=== PATIENT | female | born 1970 | race Caucasian/White ===

== ENCOUNTER 2016-06-18 09:29 | Emergency (ER) | payer OTHER ==
[2016-06-18 09:34] VITALS: BP 124/73
[2016-06-18] MEDS ORDERED: oxyCODONE/Acetamin 5/325 MG* TAB PO ONE (11:48)
[2016-06-18] MEDS ORDERED: Cyclobenzaprine TAB* 10 MG PO ONE (11:48)
--- NOTE | 2016-06-18 11:54 | ED ---
Back Pain - HPI Summary HPI Summary: 46 F presents with left sided lower back pain for 3 days. She says the pain radiates down her left leg to the knee. She denies any numbness or tingling. She denies any fever, saddle anesthesia, or loss of bowel or bladder. She denies any weakness. She has taken icy hot, tens unit, and tyenlol for her pain without relief. Her states that he believes it is the bed she recently switched beds and it is much firmer than her other bed. She denies any trauma to the area or previous injury. She already takes gabapentin for her legs. - History of Current Complaint Chief Complaint: EDBackInjuryPain Stated Complaint: LOWER LEFT BACK PAIN Time Seen by Provider: 06/18/16 11:37 Pain Intensity: 7 - Allergies/Home Medications Allergies/Adverse Reactions: Allergies Allergy/AdvReac Type Severity Reaction Status Date / Time Penicillins [PCN] Allergy Severe Rash And Verified 06/18/16 09:35 Itching PMH/Surg Hx/FS Hx/Imm Hx Endocrine/Hematology History: Denies: Hx Anticoagulant Therapy Cardiovascular History: Denies: Hx Hypertension Infectious Disease History: No Infectious Disease History: Denies: Traveled Outside the [place] in Last 30 Days - Family History Known Family History: Positive: Hypertension - Social History Alcohol Use: None Substance Use Type: Reports: None Smoking Status (MU): Never Smoked Tobacco Review of Systems Negative: Fever Negative: Chest Pain Negative: Shortness Of Breath Positive: Myalgia - back pain All Other Systems Reviewed And Are Negative: Yes Physical Exam Triage Information Reviewed: Yes Vital Signs On Initial Exam: Initial Vitals Temp Pulse Resp BP Pulse Ox 98.0 F 84 15 124/73 100 06/18/16 09:30 06/18/16 09:30 06/18/16 09:30 06/18/16 09:30 06/18/16 09:30 Vital Signs Reviewed: Yes Appearance: Positive: Well-Appearing Skin: Positive: Warm, Dry Head/Face: Positive: Normal Head/Face Inspection Eyes: Positive: Normal, Conjunctiva Clear ENT: Positive: Normal ENT inspection, Pharynx normal, TMs normal Respiratory/Lung Sounds: Positive: Clear to Auscultation, Breath Sounds Present Cardiovascular: Positive: Normal, RRR Musculoskeletal: Positive: Limited @ - back due to pain, Other - neg SLR, no midline tenderness, tenderness across left side of lower back, good pulses Neurological: Positive: Reflexes Intact Diagnostics - Vital Signs Vital Signs Temp Pulse Resp BP Pulse Ox 06/18/16 09:30 98.0 F 84 15 124/73 100 - Laboratory Lab Statement: Any lab studies that have been ordered have been reviewed, and results considered in the medical decision making process. Re-Evaluation - Re-Evaluation First Eval Re-Evaluation Time: 12:15 Comment: feeling better with pain medication and would like to go home Back Pain Course/Dx - Course Course Of Treatment: 46 F w/ left sided lower back pain for 3 days. Took tyenlol yesterday, no trauma, no warning symptoms, neg SLR, no midline tenderness, tenderness on left sideback, discussed xray but patient refused as no trauma, pain likely musculoskeletal with potentially sciatica pain, will treat conserviately, patient agrees with plan - Diagnoses Differential Diagnosis/HQI/PQRI: Positive: Strain, Sprain, Other - sciatica Provider Diagnoses: Back pain Discharge - Discharge Plan Condition: Good Disposition: HOME Prescriptions: Cyclobenzaprine TAB* [Flexeril TAB*] 10 mg PO TID PRN #8 tab PRN Reason: Pain Lidocaine PATCH 5%* [Lidoderm 5% Patch*] 1 patch TRANSDERM DAILY #5 patch Methylprednisolone [Medrol Dosepak 4 MG*] 4 mg PO .SEE CRISTAL INSTRUCTION #1 packet Patient Education Materials: Back Pain (ED) Referrals: Rajani Owens, [employer] [Primary Care Provider] - Additional Instructions: Follow directions on package for Medrol pack Take muscle relaxers three times a day for 3 days Apply lidocaine patches to area for up to 12 hours in one 24 hour period Use ibuprofen or Tylenol for pain every 6 hours ice/heat area, move as much as possible Follow up with primary within 5 days Return to ED if unable to ambulate or develop any new or worsening symptoms
== END 2016-06-18 12:56 | disposition home or self-care (01) ==
LOC: ED 09:29
DX: M54.5 Low back pain (principal)
CPT/HCPCS: 99282; A9270-GY

== ENCOUNTER → 2016-09-08 08:08 | Day surgery (SDC) | payer OTHER ==
[~2016-09-08 08:08] MED LIST: Buffered Lidocaine 1% SYR 3ML* 3 ML/SYR SYRINGE INTRADERM ONE; Dexamethasone IV* 4 MG/ML 1 ML (4 MG) IV SLOW PU ONE; Dexamethasone IV* 4 MG/ML 1 ML (4 MG) ONE; DiMENhydriNATE IV* 50 MG/ML VIAL IV PUSH PRN; Famotidine IV* 10 MG/ML 2 ML (20 mg) IV ONE; Famotidine IV* 10 MG/ML 2 ML (20 mg) ONE; Heparin VIAL(*) 5000 UNITS/ML VIAL (FIVE THOUSAND) ONE; Ketorolac INJ* 30 MG/ML 1 ML VIAL ONE; Midazolam* 1 MG/ML 2 ML VIAL (2 MG) ONE; Propofol* 10 MG/ML 20 ML BTL IV PUSH ONE; fentaNYL* 50 MCG/ML 2 ML VIAL (100 MCG VIAL) IV PRN; fentaNYL* 50 MCG/ML 2 ML VIAL (100 MCG VIAL) ONE; oxyCODONE/Acetamin 5/325 MG* TAB ONE
[2016-09-08 13:08] VITALS: BP 110/68
--- NOTE | 2016-10-10 12:22 | OP ---
OPERATIVE REPORT: DATE OF OPERATION: 09/08/16 DATE OF : 72 SURGEON: Darrius Fernando MD ANESTHESIA: General endotracheal. PRE-OP DIAGNOSIS: Menorrhagia. POST-OP DIAGNOSIS: Menorrhagia. PROCEDURE PERFORMED: Hysteroscopy and endometrial ablation using NovaSure. ESTIMATED BLOOD LOSS: Minimal. URINE OUTPUT: 100 cc. IV FLUIDS: 1100 cc of lactated Ringers. MATERIAL TO LAB: None. INDICATIONS: The patient is a 46-year-old 4, para 3, seen in the office with heavy menstrual bleeding. The patient had a history of a prior leg DVT after surgery, so some hormonal treatments were not available to her. She was using aspirin 500 mg daily, which she discontinued prior to the surgery. Endometrial biopsy was performed and returned benign. She was extensively counseled and consent was signed. FINDINGS: Normal-appearing uterine cavity with no masses or polyps seen. COMPLICATIONS: None. DESCRIPTION OF PROCEDURE: The risks, benefits, and alternatives were described to the patient and informed consent was obtained. The patient was taken to the operating room with IV running, where general anesthesia was induced and found to be adequate. The patient was prepped and draped in the normal sterile fashion in the high lithotomy position in [facility]. A time-out was performed. The bladder was emptied. A bivalve speculum was placed in the vagina and a single- tooth tenaculum was placed on the anterior cervix. The cervix was then progressively dilated using Hanks dilators to about a size of 24. At that time , a hysteroscope was advanced through the cervix and into the uterine cavity and the findings are as noted above. The hysteroscope was then removed and a NovaSure device was prepared. This was placed through the cervix and into uterine cavity. The cavity length and width were entered into the NovaSure device. A negative cavity assessment was performed and then the ablation was performed. Once the ablation was complete, the device was removed. The tenaculum was then removed from the cervix and there was good hemostasis. The speculum was removed and the was patient was returned to the supine position. The patient tolerated the procedure well. Sponge, lap, and needle counts are correct x2. [id number]/[facility] #: [id number] MTDD
== END | disposition home or self-care (01) ==
LOC: OR 08:08
PROVIDERS: ATTEND Obstetrics & Gynecology
DX: N92.0 Excessive and frequent menstruation with regular cycle (principal); N94.5 Secondary dysmenorrhea; Z86.718 Personal history of other venous thrombosis and embolism; Z87.891 Personal history of nicotine dependence; Z68.29 Body mass index [BMI] 29.0-29.9, adult
CPT/HCPCS: A9270-GY; J1100; J1644; J1885; J2250; J2704; J3010

== ENCOUNTER 2017-04-26 08:26 | Observation (INO) | payer OTHER ==
[~2017-04-26 08:26] MED LIST changes: +Acetaminophen TAB* 325 MG PO ONE; +Buffered Lidocaine 0.9% SYRIN* 5 ML/SYR SYRINGE INTRADERM ONE; -Buffered Lidocaine 1% SYR 3ML* 3 ML/SYR SYRINGE INTRADERM ONE; -Dexamethasone IV* 4 MG/ML 1 ML (4 MG) ONE; -DiMENhydriNATE IV* 50 MG/ML VIAL IV PUSH PRN; -Famotidine IV* 10 MG/ML 2 ML (20 mg) ONE; -Heparin VIAL(*) 5000 UNITS/ML VIAL (FIVE THOUSAND) ONE; -Ketorolac INJ* 30 MG/ML 1 ML VIAL ONE; -Midazolam* 1 MG/ML 2 ML VIAL (2 MG) ONE; -Propofol* 10 MG/ML 20 ML BTL IV PUSH ONE; -fentaNYL* 50 MCG/ML 2 ML VIAL (100 MCG VIAL) IV PRN; -fentaNYL* 50 MCG/ML 2 ML VIAL (100 MCG VIAL) ONE; -oxyCODONE/Acetamin 5/325 MG* TAB ONE
[2017-04-26] MEDS ORDERED: Propofol* 10 MG/ML 20 ML BTL IV PUSH ONE ×2 (08:41→12:23)
[2017-04-26] MEDS ORDERED: Lidocaine 2% PF * 5 ML VIAL ONE (08:41)
[2017-04-26] MEDS ORDERED: fentaNYL* 50 MCG/ML 2 ML VIAL (100 MCG VIAL) ONE ×3 (08:42→14:18)
[2017-04-26] MEDS ORDERED: Midazolam* 1 MG/ML 2 ML VIAL (2 MG) ONE (08:42)
[2017-04-26] MEDS ORDERED: Cisatracurium* 2 MG/ML MDV 5 ML ONE (08:44)
[2017-04-26] MEDS ORDERED: Dexamethasone IV* 4 MG/ML 1 ML (4 MG) ONE (09:14)
[2017-04-26] MEDS ORDERED: ceFAZolin 2 GM PREMIX (*) 2 GM/50 ML BAG IVPB ONE (09:14)
[2017-04-26] MEDS ORDERED: Famotidine IV* 10 MG/ML 2 ML (20 mg) ONE (09:14)
[2017-04-26] MEDS ORDERED: Acetaminophen TAB* 325 MG ONE (09:14)
[2017-04-26] MEDS ORDERED: Bupivacaine 0.25% SDV* 30 ML ONE (10:11)
[2017-04-26] MEDS ORDERED: oxyCODONE/Acetamin 5/325 MG* TAB PO PRN ×2 (10:30→13:33)
[2017-04-26] MEDS ORDERED: fentaNYL* 50 MCG/ML 2 ML VIAL (100 MCG VIAL) IV PRN (10:30)
[2017-04-26] MEDS ORDERED: DiMENhydriNATE IV* 50 MG/ML VIAL IV PUSH PRN (10:30)
[2017-04-26] MEDS ORDERED: Ibuprofen TAB* 600 MG PO PRN (10:30)
[2017-04-26] MEDS ORDERED: HYDROmorphone INJ* 1 MG/ML CARPUJECT SYRINGE IV PRN (10:30)
[2017-04-26] MEDS ORDERED: Ondansetron INJ* 2 MG/ML VIAL IV PRN (10:30)
[2017-04-26] MEDS ORDERED: Ondansetron INJ* 2 MG/ML VIAL ONE (11:04)
[2017-04-26] MEDS ORDERED: Metoprolol Tartrate IV* 1 MG/ML 5 ML VIAL ONE (11:04)
[2017-04-26] MEDS ORDERED: Ketorolac INJ* 30 MG/ML 1 ML VIAL ONE (11:04)
[2017-04-26] MEDS ORDERED: Glycopyrrolate IV* 0.2 MG/ML 1 ML VIAL ONE (11:16)
[2017-04-26] MEDS ORDERED: Neostigmine Methylsulfate* 2 MG/2 ML SYRINGE ONE (11:16)
[2017-04-26] MEDS ORDERED: HYDROmorphone INJ* 1 MG/ML CARPUJECT SYRINGE ONE (12:18)
[2017-04-26] MEDS ORDERED: oxyCODONE TAB* 5 MG TAB ONE (14:17)
[2017-04-26] MEDS: oxyCODONE TAB* 5 MG TAB PO PRN ×2 (14:18→14:21)
[2017-04-26] MEDS: Ketorolac INJ* 30 MG/ML 1 ML VIAL IV PUSH SCH ×2 (16:20→20:28)
[2017-04-26] MEDS: Simethicone TAB* 80 MG TAB.CHEW PO SCH ×2 (19:11→20:23)
[2017-04-26] MEDS: Ondansetron INJ* 2 MG/ML VIAL IV PRN (19:11)
[2017-04-26] MEDS: Gabapentin CAP(*) 300 MG PO SCH (20:23)
[2017-04-26] MEDS ORDERED: Enoxaparin(*) 40 MG/0.4 ML SYR SUBCUT SCH (22:00)
[2017-04-26] MEDS: oxyCODONE/Acetamin 5/325 MG* TAB PO PRN (22:54)
[2017-04-27] MEDS: Ketorolac INJ* 30 MG/ML 1 ML VIAL IV PUSH SCH ×2 (02:24→08:01)
[2017-04-27] MEDS: oxyCODONE/Acetamin 5/325 MG* TAB PO PRN ×2 (03:43→09:47)
[2017-04-27 05:36] LABS: Hematocrit 35 % (35-47); Hemoglobin 11.9 g/dl (12.0-16.0); Mean Corpuscular HGB Conc 34 g/dl (31-36); Mean Corpuscular Hemoglobin 33 pg (27-31); Mean Corpuscular Volume 95 fL (80-97); Mean Platelet Volume 7 um3 (7.4-10.4); Red Blood Count 3.63 10^6/ul (4.0-5.4); Red Cell Distribution Width 13 % (10.5-15); White Blood Count 15.3 10^3/ul (3.5-10.8)
[2017-04-27] MEDS: Gabapentin CAP(*) 300 MG PO SCH (08:01)
[2017-04-27] MEDS: Simethicone TAB* 80 MG TAB.CHEW PO SCH ×2 (08:01→12:27)
[2017-04-27] MEDS: Ondansetron INJ* 2 MG/ML VIAL IV PRN (09:40)
--- NOTE | 2017-04-27 13:54 | OP ---
DATE OF OPERATION: 04/26/17 - ROOM #337 DATE OF : 72 SURGEON: Darrius Fernando MD. IT ENGINEER: Dr. Persaud ANESTHESIOLOGIST: Dr. Kwon ANESTHESIA: General endotracheal. PRE-OP DIAGNOSES: Persistent menorrhagia and dysmenorrhea. POST-OP DIAGNOSES: Persistent menorrhagia and dysmenorrhea. OPERATIVE PROCEDURE: Laparoscopic supracervical hysterectomy and bilateral salpingectomy and lysis of adhesions. ESTIMATED BLOOD LOSS: 50 cc. URINE OUTPUT: 300 cc. IV FLUIDS: 1500 cc lactated Ringer's. MATERIALS TO LAB: Uterus and bilateral fallopian tubes. INDICATIONS: This patient is a 47-year-old 7, para 7, status post an endometrial ablation within the last year for persistent menorrhagia and dysmenorrhea. 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 After discussing her options, the patient desired to proceed with a definitive surgery with laparoscopic supracervical hysterectomy and she desired to have a bilateral salpingectomy as well. She was extensively counseled and consent was signed. FINDINGS: Uterus moderately enlarged about 10 to 12-week size. Both ovaries appeared normal. Both fallopian tubes had been ligated. There were significant omental adhesions to the anterior wall as well as adhesions from the anterior uterus to the bladder. There were also some mild adhesions from the omentum and bowel epiploica to the posterior uterus. COMPLICATIONS: None. DESCRIPTION OF PROCEDURE: The risks, benefits, alternatives were described to the patient and informed consent was obtained. The patient was taken to the operating room with IV running where general anesthesia was induced and found to be adequate. The patient was prepped and draped in the normal sterile fashion in the high lithotomy position, in [facility]. A time-out was performed. A Carty catheter was placed. A bivalved speculum was placed in the vagina and a single-tooth tenaculum was placed on the anterior cervix. A ClearView uterine manipulator was then advanced without difficulty through the cervix and into the uterine cavity. Once this was in place, the tenaculum was removed. The speculum was also removed. The patient was then placed in a low lithotomy position and gloves were changed. Attention was then turned to the abdomen. An approximately 3 to 4-cm of the skin was injected with 1% lidocaine just below the umbilicus. An approximately 3-cm incision was then made with a scalpel in the infraumbilical vertical midline. The skin was retracted and the fascia was grasped with a Roselyn clamp. This was elevated and the subcutaneous fat was dissected off the fascia in the midline. A transverse incision in the fascia was then created using Perrin scissors. The peritoneum was then entered bluntly. Once the opening had been made large enough, an Ismael retractor was placed into the peritoneal cavity and tightened down against the skin. With palpation, some of the omental adhesions were noted underneath the retractor. There was no bowel present however. The Ismael GelPOINT was then attached with 3 trocars. The abdomen was insufflated with carbon dioxide gas to a maximum pressure of 15 mmHg. The patient was placed in the Trendelenburg position. A modest amount of omental adhesions were present on immediate visualization of the abdominal cavity. The LigaSure was used to coagulate and dissect these from the anterior abdominal wall once it was determined that there was no bowel within them. Once this was gone, the pelvis could be better visualized. There was significant adhesions from the anterior uterus to the anterior wall and bladder. These were dissected off primarily using the LigaSure and with some blunt dissection. Care was taken to try to avoid any injury to the bladder. The patient's uterus was difficult to manipulate, especially away from the right side wall. The left round ligament was then grasped with a LigaSure, coagulated, and transected. The anterior and posterior leaves of the broad ligament were then also grasped and transected. The patient's left fallopian tube was lifted away from the ovary. The fallopian tube was then coagulated and transected away from the ovary. There was only a short length of fallopian tube on the ovarian side due to the patient's prior tubal ligation. The fallopian tube segment was removed at that time and handed off. The uterus was deviated to the patient's right as much as possible for good visualization. Once the uterine vessels were skeletonized adequately, they were grasped with the LigaSure and coagulated several times. The same was then performed on the patient's left side, although this was somewhat more difficult due to the difficulty with manipulating the uterus away. However, once we were able to obtain adequate visualization, the fallopian tube was also removed on this side and the uteroovarian ligament was also taken down without difficulty. Once the uterine vessels had been coagulated and transected, there was excellent blanching of the uterine fundus. At that time, there had been minimal bleeding. A SupraLoop was then prepared and placed through the trocar and into the uterine cavity. The loop was wrapped around the fundus and then pulled down to the cervix. Once this had been cinched down, the 30-degree laparoscope was used to carefully inspect all areas of the uterus in contact with the SupraLoop to ensure that there was good placement and that there was no contact with any other structures. Once this was in place, the uterus was amputated from the cervix with the SupraLoop at 110 pure cut. There was only slight bleeding from the cervix at that time. One blood vessel was coagulated using the LigaSure with good hemostasis. At that time, the pneumoperitoneum was released and the GelPOINT was removed. The specimen bag was then placed through the retractor and into the peritoneal cavity. The GelPOINT was replaced and the abdomen was re-insufflated. The uterus was placed into the specimen bag and then the GelPOINT was removed again and the edges of the bag were able to be pulled out through the incision. The uterus was found to be inside the bag. It was then manually morcellated using Perrin scissors and scalpel. This was the longest portion of the case as the uterus was fairly large and needed to be removed in several segments. Once the entire uterus had been removed with the bag, the GelPOINT was replaced and the abdomen was re- insufflated. The patient was returned to the Trendelenburg position and the pelvis was carefully inspected. Irrigation of the pelvis was performed and then there was excellent hemostasis noted. The GelPOINT and retractor were then removed and the patient was flattened. The fascia was then reapproximated using 0 Vicryl and a running stitch. The skin was closed with 4-0 Monocryl and the subcuticular stitch. DermaFlex skin adhesive was then placed over the incision. Of note, the uterine manipulator was removed prior to using the SupraLoop. The patient was then returned to the supine position. The patient tolerated the procedure well. Sponge, lap, and needle counts were correct x2. [id number]/[facility] #: [id number] [facility]
[2017-04-27 14:22] VITALS: BP 106/67
--- NOTE | 2017-04-28 06:51 | DS ---
DISCHARGE SUMMARY: DATE OF ADMISSION: 04/26/17 DATE OF DISCHARGE: 04/27/17 HOSPITAL COURSE: This patient is a 47-year-old, 7, para 7, who presented on the day of admission for scheduled surgery for persistent menorrhagia and dysmenorrhea despite endometrial ablation. On the day of admission, she underwent an uncomplicated laparoscopic supracervical hysterectomy and bilateral salpingectomy through a single site. Procedure was only notable for a moderately enlarged uterus with a small fibroid and possible adenomyosis. Estimated blood loss for the procedure was 50 cc. The patient had a spinal for anesthesia, which provided good pain relief overnight. On hospital day 2, the patient was ambulating, tolerating a regular diet, voiding spontaneously, and having good pain control through oral pain medications. She is discharged to home in good condition at her request on hospital day 2 and postoperative day 1. DISCHARGE PHYSICAL EXAMINATION: Vital Signs: Temperature 98.2, pulse 79, blood pressure 94/54, respiratory rate 16. General: No acute distress, comfortable, seated in bed. Abdomen: Soft, appropriate tenderness to palpation with no rebound or guarding. Incision appears clean and intact. Normal bowel sounds. LABORATORY INFORMATION: On discharge, hemoglobin 11.9, hematocrit 35, white blood cell count 15. DISCHARGE INSTRUCTIONS: Please see the patient's printed chart for the printed discharge instructions, which were discussed in person as well. DISCHARGE MEDICATIONS: Please see the medication reconciliation form in the computer. The patient will be continuing prophylactic Lovenox for the next week due to her history of blood clot. DISCHARGE DIAGNOSIS: Dysmenorrhea and menorrhagia, status post laparoscopic supracervical hysterectomy and bilateral salpingectomy. [id number]/[facility] #: [id number] MTDD
== END 2017-04-27 13:55 | disposition home or self-care (01) ==
LOC: OR 08:26 → SSU 15:46
PROVIDERS: ADMIT Obstetrics & Gynecology; ATTEND Obstetrics & Gynecology
PROC: 0UT74ZZ Resection of Bilateral Fallopian Tubes, Percutaneous Endoscopic Approach (ICD-10-PCS; 2017-04-26)
PROC: 0UT94ZL Resection of Uterus, Supracervical, Percutaneous Endoscopic Approach (ICD-10-PCS; principal; 2017-04-26 10:30)
DX: N92.0 Excessive and frequent menstruation with regular cycle (principal); N94.6 Dysmenorrhea, unspecified; Z88.0 Allergy status to penicillin
CPT/HCPCS: 36415; 85025; 86850; 86900; 86901; 88307; 94760; A9270-GY; G0378; J0690; J1100; J1170; J1650; J1885; J2250; J2405; J2704; J3010; J3490